=== PATIENT | female | born 1995 | race Hispanic/Latino ===

== ENCOUNTER 2017-09-30 15:05 | Emergency (ER) | payer OTHER ==
[2017-09-30 15:14] VITALS: BP 126/90; PULSE 102; RESP 16; TEMP 98; O2SAT 100
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
== END 2017-09-30 18:39 | disposition home or self-care (01) ==
LOC: H.ER 15:05
DX: F32.9 Major depressive disorder, single episode, unspecified (principal)